=== PATIENT | female | born 1985 | race Caucasian/White ===

== ENCOUNTER 2023-01-02 09:10 | Day surgery (SDC) | payer OTHER, SELFPAY ==
[2023-01-02] MEDS: LACTATED RINGERS 1000 ML 1,000 ML 100 ML IV (09:05)
[2023-01-02 09:24] VITALS: BP 106/64; PULSE 67; RESP 16; TEMP 37.2; O2SAT 100; BMI 26.8
[2023-01-02] MEDS: SODIUM CHLORIDE 0.9 % (FLUSH) 10 ML SYRINGE IVF (09:32)
[2023-01-02] MEDS: SILVER NITRATE APPLICATOR 1 EACH STICK..EA. TOPICAL (10:49)
--- NOTE | 2023-01-02 11:10 | W.ANESCHARGE ---
Anesthesia Charges Start Date/Time Anesthesia Start Date: 01/02/23 Anesthesia Start Time: 10:15 Stop Date/Time Anesthesia Stop Date: 01/02/23 Anesthesia Stop Time: 11:09
--- NOTE | 2023-01-02 11:10 | W.ANESCHARGE ---
Anesthesia Charges Start Date/Time Anesthesia Start Date: 01/02/23 Anesthesia Start Time: 10:15 Stop Date/Time Anesthesia Stop Date: 01/02/23 Anesthesia Stop Time: 11:09
[2023-01-02 11:13] VITALS: BP 104/64; PULSE 71; RESP 16; TEMP 36.3; O2SAT 100
[2023-01-02 11:15] VITALS: BP 107/64; PULSE 65; RESP 16; O2SAT 100
--- NOTE | 2023-01-02 11:24 | W.PM.GYNPROC ---
Procedure Note Date Seen: 01/02/23 Procedure Details: Preop diagnosis: Missed Postop diagnosis: Missed Name of procedure: Suction dilation and curettage, ultrasound guided Surgeon: Domenica Lopez Environmental Compliance Inspector: None Complications: None EBL: 100mL Drains: None Finding: Anteverted uterus on bimanual examination of around 8-9 cm, no adnexal masses. Pelvic exam: Cervix closed. No gross lesions. Uterus sounded to 8 cm. Risks, benefits, alternatives, and indications of the procedure were discussed with the patient. She voiced an understanding of the procedure and signed the consent. The patient was taken to the OR were MAC anesthesia was administered without difficulty. She received 200mg of IV doxycycline before the start of procedure. She was placed in the dorsal lithotomy position with Talon type stirrups. An exam under anesthesia revealed a 8-9 week sized anteverted uterus with the cervix open. The patient was prepared and draped in the normal sterile fashion. Her bladder was emptied with in--out catheter. A bivalved speculum was inserted in the posterior aspect of the vagina. 5 mL 1% lidocaine was injected in the anterior lip of cervix, the single-tooth tenaculum was used to grasp the anterior lip of the cervix. The uterus was carefully sounded to 8 cm. Cervix was sequentially dilated with Hegar dilators up to 8mm. A 8 mm suction curette was advanced to the uterine fundus. The suction was then started. The products of conception were evacuated with the curette rotating on the outward movement. Multiple passes afterwards completed until only blood was seen to come out. Afterwards a gentle, sharp curettage was then performed with a large curette. Bedside US performed to document complete removal of products of conception, this revealed a hyperechoic area with increased blood flow in the uterine fundus, with US in place for guidance, the suction curette was reintroduced and products of conception seen to come out, afterwards only blood seen and endometrial lining looked homogenous w/o hyperechoic area as previously seen. The tenaculum was removed from the cervix and good hemostasis was noted after Silver nitrate. 800mcg of rectal Cytotec placed. The patient tolerated the procedure well. Instrument and sponge counts were correct x2. Patient was taken to the recovery room in a stable condition. The patient will go home after recovering from anesthesia and meeting all the criteria for discharge. She was given the instructions regarding follow-up visit in 2 weeks at the [facility] and instructions for pain medication management.
[2023-01-02 11:30] VITALS: BP 105/60; PULSE 65; RESP 16; O2SAT 100
[2023-01-02 11:45] VITALS: BP 110/75; PULSE 63; RESP 16; O2SAT 100
== END 2023-01-02 12:30 | disposition home or self-care (01) ==
PROVIDERS: PCP Family Medicine; Visit Provider Obstetrics & Gynecology
PROC: (CPT 59820; principal; 2023-01-02 10:30)
DX: O02.1 Missed abortion (principal)
CPT/HCPCS: 59820; 00940; 01965; A9270; J1100; J1885; J2250; J2405; J2704; J3010; J7120

== ENCOUNTER 2023-01-20 11:42 | Outpatient (CLI) | payer OTHER, SELFPAY | END 2023-01-20 11:43 | disposition home or self-care (01) | LOC: NFLDREF 11:46 | PROVIDERS: PCP Family Medicine; Visit Provider Obstetrics & Gynecology | DX: O02.1 Missed abortion (principal) | CPT/HCPCS: 84702 ==

== ENCOUNTER 2023-02-27 07:50 | Outpatient (CLI) | payer OTHER, SELFPAY | END 2023-02-27 07:51 | disposition home or self-care (01) | LOC: NFLDREF 03-01 18:06 | PROVIDERS: PCP Family Medicine; Referring Provider Family Medicine; Visit Provider Obstetrics & Gynecology | DX: O02.1 Missed abortion (principal) | CPT/HCPCS: 84702 ==

== ENCOUNTER 2023-03-13 08:25 | Outpatient (CLI) | payer OTHER, SELFPAY | END 2023-03-13 08:26 | disposition home or self-care (01) | LOC: NFLDREF 11:16 | PROVIDERS: PCP Family Medicine; Referring Provider Family Medicine; Visit Provider Obstetrics & Gynecology | DX: O02.1 Missed abortion (principal) | CPT/HCPCS: 84702 ==

== ENCOUNTER 2023-09-23 09:45 | Outpatient (RCR) | payer BC, SELFPAY | END 2023-12-17 13:41 | disposition home or self-care (01) | PROVIDERS: PCP Family Medicine; Visit Provider Dentist | DX: M26.631 Articular disc disorder of right temporomandibular joint (principal); Z51.89 Encounter for other specified aftercare | CPT/HCPCS: 97110; 97140; 97161; 97535 ==

== ENCOUNTER 2023-09-29 12:22 | Outpatient (CLI) | payer BC, SELFPAY | END 2023-09-29 12:23 | disposition home or self-care (01) | PROVIDERS: PCP Family Medicine; Visit Provider Registered Nurse | DX: Z13.29 Encounter for screening for other suspected endocrine disorder (principal); E28.39 Other primary ovarian failure | CPT/HCPCS: 82670; 83001; 84443 ==

== ENCOUNTER 2024-01-14 12:51 | Outpatient (CLI) | payer BC, SELFPAY ==
--- OUTSIDE RECORDS SUMMARY | 2024-01-14 12:54 | XMS_ITS | Data Portability ---
Author Name Unknown Address [address] [place] [address] Phone [phone] Organization [facility] [place] Address [address] [place] [address] Care Team Providers Care Regulatory Technician Name Role Phone TANISHA GARCIA Primary Care Provider [phone] [facility] Physical Therapis t [facility] Dentist [phone] Assessment Encounter Date Assessment Date Assessment LastModified by Organization Details LastModified Time 06/23/2023 06/23/2023 Today I spent a considerable amount of time discussing the patients past medical and personal history, as well as performing a physical examination all of which is documented in it's entirety in the electronic health record. I reviewed the pathophysiology of the disorder, potential contributing and risk factors as well as treatment options to address their complaints. I explained the pros and cons of advanced imaging with CBCT and MRI. I recommended advanced imaging with CBCT. Today no imaging was obtained. From a treatment perspective I recommended a rehabilitative treatment approach. Treatment begins with home self management designed to rest the muscles of mastication and reduce inflammation in the temporomandibular joints. This includes heat and ice compresses, eating a soft food or pain-free diet, bilateral chewing identifying and decreasing daytime muscle tension and modification of their sleep position. Today I taught simple jaw exercises designed to improve the jaw mechanics and movement, improve range of mouth opening and improve TM joint fluid circulation to facilitate healing. This includes jaw rotation, simple stretch and relaxed breathing. This was both demonstrated and given in written format. Beyond self management I believe that they would benefit from a mandibular intraoral appliance. In addition I've recommended rehabilitation with physical therapy. A referral was sent to [facility] and [facility]. I have also discussed the possibility of working with our health psychologist on relaxation, stress management techniques, and ways to reduce muscle tension. Kami will consider this. Briefly we discussed medication options and trigger point injections as a way to help bridge the gap into further multidisciplinary treatment. We mutually agreed to defer it today. Kami will consider this for her next follow-up. I reviewed [employer] [place] Medical Policy for diagnosis and treatment of TMD and made the patient aware that this policy requires them to see a medical doctor to rule out a list of other causes for their TMD symptoms and for the doctor to document that the cause of their TMD-like symptoms is due to TMD and no other medical condition. Their medical doctor needs to provide the patient, and us, with this documentation. They were advised to either see their medical doctor or schedule an appointment with one of the medical doctors at [facility] for consultation. They will need to trial a maximum tolerated dose of an NSAID, or similar pain medication. They will also need to have a Imaging confirms internal derangement, disc displacement, or degenerative joint disease of the temporomandibular joint (Radiographic or imaging report signed by a radiologist). No imaging was obtained today. These are the criteria required by their insurance ([facility]) to consider the treatment of their TMD to be medically necessary. Finally, they need to see their dentist to rule out a list of dental causes for their TMD symptoms and for the dentist to document if they have a dental cause for their TMD symptoms and to treat them, or to document that none exist and provide the patient with this documentation. I suggested that they contact their insurance should they have questions regarding their policy or feel the need for further clarification. Finally, I suggested that once they meet these criteria set by their insurance and they have the necessary documentation, that they send this information to me for my review. At that time, we will complete prior authorization for treatment if the documentation is complete. The goal of treatment is to improve pain, function and focus on long-term self-management strategies. I believe that by following these treatment recommendations there is a good prognosis for reduction of symptoms. History was obtained from the patient. The patient has 5+ diagnoses they would like to address. This case is moderate complexity because of multiple diagnoses with chronic symptoms. Risk of complications include progressive disease/symptoms. Today time spent may have included a review of past records, history taking, review of diagnoses, contributing factors, treatment plan, diagnostic testing, prognosis, expectations, risks and complications of treatment/no treatment, discussions with other providers and completing documentation was 60 minutes. Cost of care and insurance coverage was reviewed and discussed with the patient. Not available 06/23/2023 21:00:48 07/02/2023 07/02/2023 Patient is prese nt today for CBCT scan. Patient was not seen by the rendering physician today. Cost of care was reviewed at today's visit. [email or web address] Not available 07/02/2023 16:29:48 07/23/2023 07/23/2023 Today I reviewed the pathophysiology of this disorder, potential contributing factors and treatment options with the patient. We reviewed the findings of her CBCT. Findings include: 1. 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 2. Remodeling of the left temporomandibular joint. There were no other abnormalities noted. For complete details regarding her imaging see the radiology report in their EHR. Diagnosis and treatment options were reviewed at today's appointment. I reviewed and reinforced continued use of self care and home exercises. I encouraged daily home care use which may consist of heat and ice compresses, oral habit reduction and relaxation techniques. Medication options were discussed and deferred for the time being. I am continuing to recommend rehabilitative care with physical therapy. Kami reports that she will contact PT to start treatment. She will consider the mandibular intraoral appliance. We will wait for her to send us the documentation necessary to start prior authorization with [facility]. I suggested that (s)he return for follow-up care in 4 weeks. History today was obtained from the patient. The patient has 5+ diagnoses they would like to address. Their symptoms are improving. This case is moderate complexity because of multiple diagnoses with chronic symptoms. Data reviewed included previous imaging. Risk of complications include disease progression were discussed. Today time spent may have included a review of past records, history taking, review of diagnoses, contributing factors, treatment plan, diagnostic testing, prognosis, expectations, risks and complications of treatment/no treatment, discussions with other providers and completing documentation was 35. Not available 07/23/2023 18:24:45 08/25/2023 08/25/2023 Today I reviewed the diagnosis, contributing factors and treatment options. I reviewed and reinforced continued use of self care and home exercises. I encouraged daily home care use which may consist of heat and ice compresses, oral habit reduction and relaxation techniques. I continue to recommend rehabilitation with physical therapy. I also discussed with Kami the option of doing trigger point injections to help restore jaw function and to reduce muscle pain. We will consider it for her next visit after she has a few more sessions with PT. She would like to continue with a mandibular intraoral appliance. Today digital impressions were obtained to begin the fabrication process for oral appliance therapy. We will wait for her to send us the documentation necessary from her DDS to start prior authorization with [employer]. Our office has received a letter from her MD. History today was obtained from the patient. The patient has 5+ diagnoses which we are addressing. Their symptoms are improving. This case is moderate complexity because of multiple diagnoses with chronic symptoms. Data reviewed included outside records. Risk of complications include disease/symptom progression were discussed. Today time spent may have included a review of past records, history taking, review of diagnoses, contributing factors, treatment plan, diagnostic testing, prognosis, expectations, risks and complications of treatment/no treatment, discussions with other providers and completing documentation was 35 minutes. I suggested that (s)he return for follow-up care in 4 weeks. Not available 08/25/2023 16:11:32 10/27/2023 10/27/2023 Patient was seen today for follow-up and insertion of a mandibular stabilization intraoral appliance. Diagnosis and contributing factors were reviewed. Questions were answered. Self-management and home exercise techniques were reviewed. Today the intraoral appliance was fit to patient comfort. Specifically, adjustments were made to balance appliance occlusion. Retention was adequate. Kami reported it being comfortable to wear. Appliance was polished. Instructions on proper use and care were discussed/reviewed both written and verbally. I suggested that (s)he uses the appliance as a retraining tool to aid in relaxing their jaw muscles - put it in 20-30 minutes before bed time, keeping their jaw in a relaxed balanced position, simultaneously applying a heat compress on the jaw as a way to help with jaw relaxation. Potential side effects were reviewed. The patient was advised to discontinue oral appliance use should they experience untoward side effects or be unable to return for follow-up care. The patient was advised to return in 3-4 weeks to reassess their progress and continue their treatment plan as previously outlined. In addition to oral appliance insertion today we review home self-care strategies as previously discussed. We discussed additional treatment options. Kami has regained TMJ range of motion, but still has pain associated with right masseter trigger point. We discussed trigger point injections, and Kami would like to start first with the stabilization appliance, and consider the injection at her next follow-up if symptoms have not improved. We discussed the importance of physical therapy. Kami has completed PT. Based on her symptoms and compliance with home self-care and home jaw exercises, we mutually agreed to not continue with PT at this point. We also briefly discussed her CBCT results, the implication of right TMJ DJD and the implications for her jaw symptoms. History today was obtained from the patient. The patient has 5 diagnoses which we are addressing. Their symptoms are improving. This case is moderate complexity because of multiple diagnoses with chronic symptoms. Data reviewed included procedure documentation. Risk of complications include disease/symptom progression were discussed. Today time spent may have included a review of past records, history taking, review of diagnoses, contributing factors, treatment plan, diagnostic testing, prognosis, expectations, risks and complications of treatment/no treatment, discussions with other providers and completing documentation was 35 minutes. Not available 10/27/2023 15:02:04 12/02/2023 12/02/2023 Today I reviewed the diagnosis, contributing factors and treatment options. I reviewed and reinforced continued use of self care and home exercises. I encouraged daily home care use which may consist of heat and ice compresses, oral habit reduction and relaxation techniques. The intraoral appliance was adjusted to patient comfort. Specifically, adjustments were made to balance the occlusion since it had heavier contacts on the left side. Splint was polished. Kami reported it being comfortable to wear it. To continue to manage her symptoms, I reinforced the importance of being consistent with daily home self-care and jaw/neck exercises. We again discussed trigger point injections risks and benefits, and Kami would like to continue wearing the splint nightly for a few more weeks before considering a trial with trigger point injections. We will discuss it at her next follow-up visit. We discussed the need for additional PT, and we mutually agreed to continue with self-management treatment approaches for now. History today was obtained from the patient. The patient has 5 diagnoses which we are addressing. Their symptoms are improving. This case is moderate complexity because of multiple diagnoses with chronic symptoms. Risk of complications include disease/symptom progression were discussed. Today time spent may have included a review of past records, history taking, review of diagnoses, contributing factors, treatment plan, diagnostic testing, prognosis, expectations, risks and complications of treatment/no treatment, discussions with other providers and completing documentation was 25 minutes. I suggested that (s)he return for follow-up care in 4 weeks. Not available 12/02/2023 16:13:53 12/28/2023 12/28/2023 Today I reviewed the diagnosis, contributing factors and treatment options. I reviewed and reinforced continued use of self care and home exercises. I encouraged daily home care use which may consist of heat and ice compresses, oral habit reduction and relaxation techniques. The intraoral appliance was adjusted to patient comfort. Specifically, adjustments were made to balance the occlusion since it had slightly heavier contacts on the left posterior side. Splint was polished. Kami reported it being comfortable to wear it. I reinforced continued home self care and home exercises as outlined by physical therapy. We discussed flare-up management and expectations. I encouraged her to continue oral appliance use nightly. I suggested we start long-term follow and that she return in 12 months. History today was obtained from the patient. The patient has 5 diagnoses which we are addressing. Their symptoms are improved. This case is moderate complexity because of multiple diagnoses with chronic symptoms. Risk of complications include disease/symptom progression were discussed. Today time spent may have included a review of past records, history taking, review of diagnoses, contributing factors, treatment plan, diagnostic testing, prognosis, expectations, risks and complications of treatment/no treatment, discussions with other providers and completing documentation was 15 minutes. I suggested that (s)he return for follow-up care in annually or PRN sooner. Not available 12/28/2023 10:30:11 Plan of Treatment Reminders Order Date Submit Date Provider Last Modified By Organization Details Last Modified Time Details Appointments None recorded. Lab None recorded. Referral physical therapist referral - Please call patient to schedule an appointmen t. 2022 023 [facility] [place] [facility] [place] Pr[address]ay Kwan, [place], [address], 21:05:08 Procedures None recorded. Surgeries None recorded. Imaging CT, temporal bone, w/o contrast 2022 023 MICHAEL [facility], [address], [address], [place], [address], 14:06:41 Medication Orders None recorded. Patient TargetsNo targets recorded. Patient Instructions Encounter Date Encounter Id Patient Instructions Last Modified By Organization Details Last Modified Time 06/23/2023 [id number] Self Care for TMD Not avai lable 06/23/2023 21:02:54 oral appliance preparation* Not available 06/23/2023 21:02:54 Three Jaw Exercises Not available 06/23/2023 21:02:54 Reason for Referral Physical Therapist Referral for 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 Please call patient to schedule an appointment. Referring Physician: Beni Pike, Pain Management, Encounter Date: 06/23/2023 Results Created Date Observation Date Name Description Value Unit Range Abnormal Flag LastModifiedBy Organization Detail LastModifiedTime 06/23/2006/23/2023 oral appli ance prepa ratio n* Type of appliance mandib ular stabil izatio n applia nce Not Available [facility] [place] [address], [place], [address], 06/19/2023 14:45:00 06/23/2006/24/2023 CT, tempo ral bone, w/o contr ast No observ ation record ed. [facility] [address], [place], [address], 06/25/2023 13:06:30 07/20/20 23 07/20/2023 CT, tempo ral bone, w/o contr ast No observ ation record ed. [facility] [address], [place], [address], 07/23/2023 18:05:30 Result Notes None recorded. 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 BENI NASCSASHA Oconnell DDS,MS [address], [place], [address], [facility] 4 14:57:52 Myofascial pain Active 2022 masticatory BENI NASCSASHA Oconnell DDS,MS [address], [place], [address], [facility] 3 20:42:21 Sleep related bruxism Active 2022 BENI NASCIMENT Kourtney DDS,MS [address], [place], [address], [facility] 3 20:44:30 Bilateral temporomandibul ar joint pain Active 2022 Bilateral TMJ arthralgia?? BENI NASCIMENT Kourtney DDS,MS [address], [place], [address], [facility] 3 20:45:04 Articular disc disorder of left temporomandibul ar joint Active 2022 Remodeling of the left temporomandibul ar joint. BENI NASCIMENT Kourtney DDS,MS [address], [place], [address], [facility] 4 14:57:39 Problem Notes None recorded. Procedures Surgical History Date Name Laterality Status Provider Name and Address Organization Details Recorded Time 4 Oral appliance completed Cynthia dupont [facility] 10/26/2023 10:47:[address] TMJ completed Sherine dupont [facility] 07/02/2023 14:11:04 3 Dilation and Curettage completed Ania dupont [facility] 06/23/2023 14:13:57 Imaging Results Imaging Date Name Status LastModified by Organiz ation Details LastModified Time 06/24/2023 CT, temporal bone, w/o contrast completed Marion [address], [place], [address], 06/25/2023 13:06:30 07/20/2023 CT, temporal bone, w/o contrast completed [facility] [address], [place], [address], 07/23/2023 18:05:30 Procedure Notes None recorded. Medical Equipment None Reported. Allergies No known drug allergies Medications Name Sig Start Date Stop Date Status Note LastModified by Organization Details LastModified Time medroxyprog esterone 10 mg tablet TAKE 1 TABLET BY MOUTH ONCE A DAY 12/01 completed Not Available Not Available Not Available medroxyprog esterone 5 mg tablet TAKE TWO TABLETS (10MG) BY MOUTH ONCE DAILY active Not Available Not Available No t Available estradiol 0.1 mg/24 hr semiweekly transdermal patch APPLY 1 PATCH TO SKIN EVERY OTHER DAY active Not Available Not Available No t Available metronidazo le 0.75 % topical cream APPLY TWICE A DAY TO CHEEKS DIRECTED active Not Available Not Available No t Available progesteron e micronized 200 mg capsule INSERT 1 CAPLET TWICE DAILY active Not Available Not Available No t Available sulfacetami de sodium-sulf ur 8 %-4 % topical suspension WASH FACE ONCE DAILY. LATHER AND LET SIT FOR SEVERAL MINUTES PRIOR RINSING. active Not Available Not Available No t Available ivermectin 1 % topical cream APPLY A THIN LAYER TO THE ENTIRE FACE 1-2X DAILY, ONGOING. active Not Available Not Available No t Available Vitals Date Recorded Body height Body mass index (BMI) Body weight Heart rate Systolic blood pressure Diastolic blood pressure Provider Name and Address Organization Details Last Updated DateTime 3 162.56 cm 25.7 kg/m2 15921.8 6 g 109 /min 115 mm[Hg] 69 mm[Hg] Ania Shady dupont [facility] 3 14:10:52 Date Recorded Body height Provider Name an d Address Organization Details Last Updated DateTime 07/02/2023 162.56 cm Jory Chenp [facility] 07/02/2023 16:29:27 Date Recorded Body height Heart rate Systolic blood pressure Diastolic blood pressure Provider Name and Address Organization Details Last Updated DateTime 07/23/2023 162.56 cm 99 /min 115 mm[Hg] 70 mm[Hg] Cynthia dupont [facility] 07/23/2023 14:38:25 Date Recorded Body height Heart rate Systolic blood pressure Diastolic blood pressure Provider Name and Address Organization Details Last Updated DateTime 08/25/2023 162.56 cm 92 /min 116 mm[Hg] 72 mm[Hg] Cynthia dupont [facility] 08/25/2023 14:04:54 Date Recorded Body height Body mass index (BMI) Body weight Heart rate Systolic blood pressure Diastolic blood pressure Provider Name and Address Organization Details Last Updated DateTime 4 162.56 cm 25.7 kg/m2 10972.8 6 g 75 /min 119 mm[Hg] 79 mm[Hg] Cynthia dupont [facility] 4 14:00:16 Date Recorded Body height Heart rate Systolic blood pressure Diastolic blood pressure Provider Name and Address Organization Details Last Updated DateTime 12/02/2023 162.56 cm 71 /min 115 mm[Hg] 71 mm[Hg] Cynthia Chau [facility] 12/02/2023 15:34:44 Date Recorded Body height Heart rate Systolic blood pressure Diastolic blood pressure Provider Name and Address Organization Details Last Updated DateTime 12/28/2023 162.56 cm 73 /min 117 mm[Hg] 74 mm[Hg] Austyn Irby [facility] 12/28/2023 10:03:07 Social History Question Answer Notes LastModified by Organizat ion Details LastModified Time Tobacco Smoking Status Never Smoker RAYA Donaldson [facility] 06/23/2023 13:59:20 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 [id number] Information not available 06/23/2023 Sex: Female Functional Status None recorded. Mental Status None recorded. Family History Relationship Description Onset Age of this Age Resolved Age Notes Mother Headache Paternal Grandfather Heart disease Medical History Condition Response Other Mental Problems Y Gynecological HistoryNo gynecological history recorded. Obstetrics History GPAL:G 0 P 0 0 0 0 Immunizations Vaccine Type Date Status Provider Name and Address Organization Details Recorded Time SARS-COV-2 (COVID-19) vaccine, UNSPECIFIED 06/21/2022 completed RAYA Donaldson [facility] 06/23/2023 14:11:29 Past Encounters Encounter ID Performer Location Encounter Start Date Encounter Closed Date Diagnosis/Indication Diagnosis SNOMED-CT Code [id number] BENI PIKE DDS,[facility] [address] [place] [address] 06/23/2023 13:54:01 06/23/2023 15:17:47 Myofascial pain [id number] 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 3605999449298 9105 Sleep related bruxism 27 [id number] Bilateral temporomandibular joint pain 0028825635106 9105 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 4157215766544 [id number] BENI PIKE DDS,[facility] [address] [place] [address] 07/02/2023 14:27:20 07/02/2023 14:37:19 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 4917029252516 9104 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 [id number] 9105 Bilateral temporomandibular joint pain [id number] 9105 Myofascial pain 85970670 9 Sleep related bruxism 27 4737499 [id number] BENI PIKE DDS,[facility] [address] [place] [address] 07/23/2023 14:34:02 07/23/2023 15:18:46 Bilateral temporomandibular joint pain 5266577110554 9105 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 3748533010981 9104 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 3428221972980 9105 Sleep related bruxism 27 0906491 Myofascial pain 22658925 9 [id number] BENI PIKE DDS,[facility] [address] [place] [address] 08/25/2023 14:02:17 08/25/2023 14:43:06 Bilateral temporomandibular joint pain 4040993067332 9105 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 3399868912438 9104 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 9583717811703 9105 Myofascial pain 62676009 9 Sleep related bruxism 27 9031515 [id number] BENI PIKE DDS,[facility] [address] [place] [address] 10/27/2023 13:56:30 10/27/2023 14:31:47 Bilateral temporomandibular joint pain 1045335574193 9105 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 3388047378246 9104 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 3361105085632 9105 Sleep related bruxism 27 0222915 Myofascial pain 36413058 9 [id number] BENI PIKE DDS,[facility] [address] [place] [address] 12/02/2023 15:31:56 12/02/2023 15:58:01 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 4882381994368 9104 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 6582664356273 9105 Bilateral temporomandibular joint pain 2912694387055 9105 Sleep related bruxism 27 9050510 Myofascial pain 75548042 9 [id number] BENI PIKE DDS,[facility] [address] [place] [address] 12/28/2023 09:59:47 12/28/2023 10:28:13 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 7053175251452 9104 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 7055871430899 9105 Bilateral temporomandibular joint pain 6991850178050 9105 Sleep related bruxism 27 9596037 Myofascial pain 30486489 9 Health Concerns Section Related Observation LastModified by Organization Detai ls LastModified Time None Recorded Concern Status LastModified by Organization Details LastModified Time None Recorded Advance Directives Directive None Recorded Payers Encounter Date Sequence Insurance Name Policy Number Policy Handy Covered Member ID Handy Member ID Guarantor Name 12/28/2023 1 [facility] [id number] Kami M Mariela [id number] Kami M Mariela 12/02/2023 1 [place] [id number] Kaim M Mariela [id number] Kami M Mariela 10/27/2023 [place] [id number] Kami M Mariela [id number] Kami M Mariela 08/25/2023 [place] [id number] Kami M Mariela [id number] Kami M Mariela 07/23/2023 1 [place] [id number] Kami M Mariela [id number] Kami M Mariela 07/02/2023 1 [place] [id number] Kami M Mariela [id number] Kami M Mariela 06/23/2023 1 [place] [id number] Kami M Mariela [id number] Kami M Mariela Notes Date Note Type Note Provider Name and Address Organization Details Recorded Time 06/23/2023 text/html HPI Notes: gener al HPI for jaw, face, TMD pain Reported by patient. Onset: started 20 year(s) ago; gradual; 2018 and 2019 Location: bilateral; masseteric Quality: dull; aching; sore Severity: mild Duration intermittent daily Symptom triggers: clenching; bruxism; stress; anxiety; chews hard/crunchy/chewy foods Aggravating Factors: stress; anxiety; grinding teeth; clenching the teeth; yawning; wide mouth opening Alleviating Factors: NSAIDs; splint therapy; physical therapy Associated Symptoms: jaw locks closed right Prior Treatment: retirement consultant/oral appliance/splint Symptoms status Patient presents today for evaluation of a possible temporomandibular disorder. These symptoms are chronic and began with no clear triggering events. Previous consultation include evaluation with his/her dentist. Symptoms are bilateral and aggravated by clenching and grinding of their teeth. The patient is aware of teeth clenching and grinding. 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 During her 30s she started noticing bilateral jaw pain. The symptoms have been stable since and It increased during the pandemic. She associates it with stress and anxiety. She used a NTI during that time for about a year and developed an anterior open bite (stable since). Last year she was seen at [facility] for evaluation. She reported about 30-40% pain improvement with physical therapy and home self-care. She is currently not engaged with self-care, but will occasionally do the TMJ rotation exercise with TMJ stretches. She also wore a maxillary stabilization appliance, which was very helpful but has a posterior crack so she does not wear it. She has frequently higher jaw pain upon awakening. Her current symptoms are bilateral jaw pain (right greater than left). She reported one right TMJ closed lock episode that lasted for about 3 days last year. She stopped noticing right TMJ click since, but recognizes occasional crepitus. She denies any widespread joint pain and hypermobile she is not. She denies headache, neck pain or ear pain. She denies dental pain, snoring and witnessed apnea. She is overall in good health, and is seeing a therapist on a as needed basis to address infertility issues and the impact in her mental health. 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 BENI PIKE DDS,MS [address], [place], [address], [facility] 06/23/2023 21:02:57 07/02/2023 text/html HPI Notes: Taiwo randolph present in clinic for CT scan of bilateral TMJ. Took bilateral CT scan and sent scan to [facility] to be read. BENI PIKE DDS,MS [address], [place], [address], [facility] 07/19/2023 20:21:37 07/23/2023 text/html HPI Notes: gener al HPI for jaw, face, TMD pain Reported by patient. Onset: started 20 year(s) ago; gradual; 2018 Location: bilateral; masseteric Quality: dull; aching; sore Severity: mild Duration intermittent daily Symptom triggers: clenching; bruxism; stress; anxiety; chews hard/crunchy/chewy foods Aggravating Factors: stress; anxiety; grinding teeth; clenching the teeth; yawning; wide mouth opening Alleviating Factors: NSAIDs; splint therapy; physical therapy Associated Symptoms: jaw locks closed right Prior Treatment: retirement consultant/oral appliance/splint Symptoms status improved Patient presents today for follow-up. They report jaw symptoms which are improved since the previous visit. Symptoms and pertinent information along with prior data was reviewed, updated and documented in the patient history of present illness. Patient rates the pain intensity as 4 on a scale of 0 to 10. Patient is partially engaged in active treatment at this time. Kami is doing heat compresses in both masseters at night, and report 5% of improvement to her overall symptoms. She has not started with the home jaw exercises. Kami has been in contact with PT but has not scheduled an initial visit She has seen MD and [facility] following [facility] insurance recommendations. BENI PIKE DDS,MS [address], [place], [address], [facility] 07/23/2023 18:29:25 08/25/2023 text/html HPI Notes: gener al HPI for jaw, face, TMD pain Reported by patient. Onset: started 20 year(s) ago; gradual; 2018 Location: bilateral; masseteric Quality: dull; aching; sore Severity: mild Duration intermittent daily Symptom triggers: clenching; bruxism; stress; anxiety; chews hard/crunchy/chewy foods Aggravating Factors: stress; anxiety; grinding teeth; clenching the teeth; yawning; wide mouth opening Alleviating Factors: NSAIDs; splint therapy; physical therapy Associated Symptoms: jaw locks closed right Prior Treatment: retirement consultant/oral appliance/splint Symptoms status improved Patient presents today for follow-up. They report jaw symptoms which are improved since the previous visit. Symptoms and pertinent information along with prior data was reviewed, updated and documented in the patient history of present illness. Patient rates the pain intensity as 2 on a scale of 0 to 10. Patient is engaged in active treatment at this time. Kami is present for a follow up appointment today. She states tends to have some discomfort on right side when chewing foods that can be chewy. She started physical therapy. She finds it very helpful, she has had two visits , and is doing the PT exercises 1-3 times a day. She reports close to 50% of improvement, mainly due to PT and home PT. She is doing heat compresses daily (jaw/neck), KYLE PIKE DDS,MS [address], [place], [address], [facility] 08/25/2023 16:23:34 10/27/2023 text/html HPI Notes: gener al HPI for jaw, face, TMD pain Reported by patient. Onset: started 20 year(s) ago; gradual; 2018 and 2019 Location: bilateral; masseteric Quality: dull; aching; sore Severity: mild Duration intermittent daily Symptom triggers: clenching; bruxism; stress; anxiety; chews hard/crunchy/chewy foods Aggravating Factors: stress; anxiety; grinding teeth; clenching the teeth; yawning; wide mouth opening Alleviating Factors: NSAIDs; splint therapy; physical therapy Associated Symptoms: jaw locks closed right Prior Treatment: retirement consultant/oral appliance/splint Symptoms status improved Patient presents today for insertion of a mandibular stabilization oral appliance. They note improved symptoms which along with prior data was reviewed, updated and documented in the patient history of present illness. (S)he describes compliance with home self care as previously recommended. Kami continue to report improvement. She reports no pain with and talking. She has pain at end range of motion and pain around knot on right masseter. She is doing daily heat compresses nad jaw distraction exercises. Ca has completed PT. She feels that she has increased range of motion BENI PIKE DDS,MS [address], [place], [address], [facility] 10/27/2023 15:03:03 12/02/2023 text/html HPI Notes: gener al HPI for jaw, face, TMD pain Reported by patient. Onset: started 20 year(s) ago; gradual; 2018 Location: bilateral; masseteric Quality: dull; aching; sore Severity: mild Duration intermittent daily Symptom triggers: clenching; bruxism; stress; anxiety; chews hard/crunchy/chewy foods Aggravating Factors: stress; anxiety; grinding teeth; clenching the teeth; yawning; wide mouth opening Alleviating Factors: NSAIDs; splint therapy; physical therapy Associated Symptoms: jaw locks closed right Prior Treatment: retirement consultant/oral appliance/splint Symptoms status improved Patient presents today for follow-up. They report jaw symptoms which are improved since the previous visit. Symptoms and pertinent information along with prior data was reviewed, updated and documented in the patient history of present illness. Patient rates the pain intensity as 3 on a scale of 0 to 10. Patient is completed active treatment at this time. Kami reports slightly improvement. Kami is present for 1 month follow up with splint. She has completed PT. She reports that her both masseter muscles feels tight. Kami is still doing heat compresses as needed and home PT exercises daily. She is using the mandibular splint nightly, and has noticed increased pressure on the splint on the left side. BENI PIKE DDS,MS [address], [place], [address], [facility] 12/02/2023 16:14:48 12/28/2023 text/html HPI Notes: gener al HPI for jaw, face, TMD pain Reported by patient. Onset: started 20 year(s) ago; gradual; 2018 Location: bilateral; masseteric Quality: dull; aching; sore Severity: mild; pain level 1/10 Duration intermittent daily Symptom triggers: clenching; bruxism; stress; anxiety; chews hard/crunchy/chewy foods Aggravating Factors: stress; anxiety; grinding teeth; clenching the teeth; yawning; wide mouth opening Alleviating Factors: NSAIDs; splint therapy; physical therapy Associated Symptoms: jaw locks closed right Prior Treatment: retirement consultant/oral appliance/splint Symptoms status improved Patient presents today for follow-up. They report jaw symptoms which are improved since the previous visit. Symptoms and pertinent information along with prior data was reviewed, updated and documented in the patient history of present illness. Patient rates the pain intensity as 1 on a scale of 0 to 10. Patient is engaged in active treatment at this time. Kami is present for 2 month follow up with splint. She states that she is doing well with her splint, less pain and more aware of daily clenching. No need for TPI today. Kami did finish with PT in [place]. She is doing home exercises as needed. She wearing her mandibular splint nightly without issues. Pain is now occurring upon awakening and splint is very helpful. BENI PIKE DDS,MS [address], [place], [address], [facility] 12/28/2023 10:30:51 OBGyn Episode No OBEpisode recorded.
--- OUTSIDE RECORDS SUMMARY | 2024-01-14 12:54 | XMS_ITS | Continuity of Care Document ---
Author Name Unknown Address [address] [place] [address] Phone [phone] Organization 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 I suggested that [...] was 35 minutes. Not available 10/27/2023 15:02:04 Plan of Treatment Reminders Order Date Submit Date Provider Last Modified By Organization Details Last Modified Time Details Appointments None record ed. Lab None record ed. Referral None record ed. Procedures None record ed. Surgeries None record ed. Imaging None record ed. Medication Orders None record ed. Patient TargetsNo targets recorded. Patient InstructionsNo instructions recorded. 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 BENI Oconnell, DDS,MS [address], [place], [address], [facility] 4 14:57:52 Myofascial pain Active 2022 masticatory BENIHERMINIA Oconnell DDS,MS [address], [place], [address], [facility] 3 20:42:21 Sleep related bruxism Active 2022 BENI NASCIMENT Kourtney, DDS,MS [address], [place], [address], [facility] 3 20:44:30 Bilateral temporomandibul ar joint pain Active 2022 Bilateral TMJ arthralgia?? BENI CALDERONIMENT Kourtney, DDS,MS [address], [place], [address], [facility] 3 20:45:04 Articular disc disorder of left temporomandibul ar joint Active 2022 Remodeling of the left temporomandibul ar joint. BENI YUMIKOSASHA Oconnell DDS,MS [address], [place], [address], [facility] 4 14:57:39 Problem Notes None recorded. Procedures Surgical History Date Name Laterality Status Provider Name and Address Organization Details Recorded Time 4 Oral appliance completed Cynthia dupont [facility] 10/26/2023 10:47:[address] TMJ completed Sherine dupont [facility] 07/02/2023 14:11:04 3 Dilation and Curettage completed Ania Caruso [facility] 06/23/2023 14:13:57 Imaging Results None recorded. Procedure Notes None recorded. Medical Equipment None [...] Updated DateTime 4 162.56 cm 25.7 kg/m2 42434.8 6 g 75 /min 119 mm[Hg] 79 mm[Hg] Cynthia dupont 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 [id number] Information not available 06/23/2023 Sex: Female Functional [...] (COVID-19) vaccine, UNSPECIFIED 06/21/2022 completed RAYA Donaldson [facility] 06/23/2023 14:11:29 Past Encounters Encounter ID Performer Location Encounter Start Date Encounter Closed Date Diagnosis/Indication Diagnosis SNOMED-CT Code [id number] BENI PIKE DDS,MS [place] [address] [place] [address] 10/27/2023 13:56:30 10/27/2023 14:31:47 Bilateral temporomandibular joint pain [id number] 05 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 949117825975378 04 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.] Symptoms: jaw locks closed right 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
--- OUTSIDE RECORDS SUMMARY | 2024-01-14 12:54 | XMS_ITS | Continuity of Care Document ---
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 Not available 12/02/2023 16:13:53 Plan of Treatment Reminders Order Date Submit [...] to schedule an appointment. 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 BENI Oconnell DDS,MS [address], [place], [address], [facility] 4 14:57:52 Myofascial pain Active 2022 masticatory BENI Oconnell DDS,MS [address], [place], [address], [facility] 3 20:42:21 Sleep related bruxism Active 2022 BENI Oconnell DDS,MS [address], [place], [address], [facility] 3 20:44:30 Bilateral temporomandibul ar joint pain Active 2022 Bilateral TMJ arthralgia?? 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 BENI Oconnell, DDS,MS [address] [facility], [place], [address], [facility] 4 14:57:39 Problem Notes None recorded. Procedures Surgical History Date Name Laterality Status Provider Name and Address Organization Details Recorded Time 4 Oral appliance completed Cynthia dupont [facility] 10/26/2023 10:47:[address] TMJ completed Sherine dupont [facility] 07/02/2023 14:11:04 3 [facility] [...] t Available Vitals Date Recorded Body height Heart rate Systolic blood pressure Diastolic blood pressure Provider Name and Address Organization Details Last Updated DateTime 12/02/2023 162.56 cm 71 /min 115 mm[Hg] 71 mm[Hg] Cynthiamaximo RiceRAYA kay - [facility] 12/02/2023 15:34:44 Social History Question Answer Notes LastModified by Organizat ion Details LastModified Time Tobacco Smoking Status Never Smoker RAYA Donaldson [facility] 06/23/2023 13:59:20 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 280442090287226 05 Bilateral temporomandibular joint pain 557746947557348 05 Sleep related bruxism 27 9533007 Myofascial pain 39633825 9 Health Concerns Section Related Observation LastModified by Organization Detai ls LastModified Time None Recorded Concern Status LastModified by Organization Details LastModified Time None Recorded Payers Encounter Date Sequence Insurance Name Policy Number Policy Handy Covered Member ID Handy Member ID Guarantor Name 12/02/2023 1 [facility] [id number] Kami Sierra [id number] Kami Sierra Notes Date Note Type Note Provider Name and Address Organization Details Recorded Time 12/02/2023 text/html HPI Notes: gener al HPI [...] Symptoms: jaw locks closed right Prior Treatment: plant guard/oral appliance/splint Symptoms status improved Patient presents [...] on the left side. BENI PIKE DDS,MS [address], [place], [address], [facility] 12/02/2023 16:14:48 OBGyn Episode No OBEpisode recorded.
--- OUTSIDE RECORDS SUMMARY | 2024-01-14 12:54 | XMS_ITS | Continuity of Care Document ---
Author Name Unknown Address [address] [place] [address] Phone [phone] Organization [facility] [place] Address [address] [place] [address] Care Team Providers Care Foreign Language Instructor Name Role Phone TANISHA GARCIA Primary Care Provider [facility] Physical Therapis t [facility] Dentist Assessment Encounter Date Assessment Date Assessment LastModified by Organization Details LastModified Time 12/28/2023 12/28/2023 Today I reviewed the diagnosis, [...] temporomandibul ar joint. BENI Oconnell DDS,MS [address], [place], [address], [facility] 4 14:57:52 Myofascial pain Active 2022 masticatory BENI Oconnell DDS,MS [address], [place], [address], [facility] 3 20:42:21 Sleep related bruxism Active 2022 BENI Oconnell DDS,MS [address], [place], [address], [facility] 3 20:44:30 Bilateral temporomandibul ar joint pain Active 2022 Bilateral TMJ arthralgia?? 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 BENI Oconnell DDS,MS [address] [facility] [address], [place], [address], [facility] 4 14:57:39 Problem Notes None recorded. Procedures Surgical History Date Name Laterality Status Provider Name and Address Organization Details Recorded Time 4 Oral appliance completed Cynthia dupont [facility] 10/26/2023 10:47:[address] TMJ completed Sherine dupont [facility] 07/02/2023 14:11:04 3 Dilation and Curettage completed Ania dupont [facility] 06/23/2023 [...] cm 73 /min 117 mm[Hg] 74 mm[Hg] RAYA Thomas - [facility] 12/28/2023 10:03:07 Social History Question Answer Notes LastModified by Organizat ion Details LastModified Time Tobacco Smoking Status Never Smoker RAYA Donaldson - [facility] 06/23/2023 13:59:20 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 057173853960413 05 Bilateral temporomandibular joint pain 069373917973886 05 Sleep related bruxism 27 5088092 Myofascial pain 60389331 9 [id number] BENI PIKE DDS,MS [place] [address] [place] [address] 12/28/2023 09:59:47 12/28/2023 10:28:13 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 127765646843943 04 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 458339481742785 05 Bilateral temporomandibular joint pain 387697755888071 05 Sleep related bruxism 27 9536542 Myofascial pain 73501548 9 Health Concerns Section Related Observation LastModified by Organization Detai ls LastModified Time None Recorded Concern Status LastModified by Organization Details LastModified Time None Recorded Payers Encounter Date Sequence Insurance Name Policy Number Policy Handy Covered Member ID Handy Member ID Guarantor Name 12/28/2023 1 [facility] [id number] Kami Sierra [id number] Kami Sierra Notes Date Note Type Note Provider Name and Address Organization Details Recorded Time 12/28/2023 text/html HPI Notes: gener al HPI [...] Symptoms: jaw locks closed right Prior Treatment: bulb inspector/oral appliance/splint Symptoms status improved Patient presents today [...] today. Kami did finish with PT in [place]. She is doing home exercises as needed. She wearing her mandibular splint nightly without issues. Pain is now occurring upon awakening and splint is very helpful. BENI PIKE DDS,MS [address] [address], [place], [address], [facility] 12/28/2023 10:30:51 OBGyn Episode No OBEpisode recorded.
--- NOTE | 2024-01-14 13:00 | US_ITS ---
Patient: JAYNE HAHN Facility:?[facility] Patient ID:?[id number] Site Patient ID:?[id number]. Site :?1985 Study:?US-Pelvis TRANSABDOMINAL AND TRANSVAGINAL-01/14/2024 1:35:45 PM Ordering Physician:?JOSHUA PAL Final Report: INDICATION: Pelvic and perineal pain TECHNIQUE: Transabdominal and transvaginal scanning was performed. Transvaginal scanning was performed to optimally evaluate the endometrium and adnexa. Ovarian blood flow was evaluated with color-flow and pulsed Doppler. COMPARISON: None. FINDINGS: The uterus is normal in size and shape. The uterus measures 9.1 x 4.0 x 5.5 cm. No myometrial mass is evident. The endometrial stripe is normal in thickness at 9 mm. The ovaries are normal in size and contain a number of follicles. The right ovary measures 2.5 x 1.7 x 0.9 cm and left 3.1 x 1.7 x 0.9 cm. Ovarian blood flow is demonstrated with color-flow and pulsed Doppler. No adnexal mass is evident. No free fluid is demonstrated. IMPRESSION: Negative pelvic ultrasound. Dictated by Rhett Urban MD @ 01/15/2024 12:21:10 PM Signed by:?Rhett Urban MD @01/15/2024 12:21:10 PM (Electronic Signature)
== END 2024-01-14 12:52 | disposition home or self-care (01) ==
LOC: US 12:52
PROVIDERS: PCP Family Medicine; Visit Provider Registered Nurse
DX: R10.2 Pelvic and perineal pain (principal)
CPT/HCPCS: 76830; 76856; 93976

== ENCOUNTER 2024-01-22 10:53 | Outpatient (CLI) | payer BC, SELFPAY | END 2024-01-22 10:54 | disposition home or self-care (01) | PROVIDERS: PCP Family Medicine; Visit Provider Family Medicine | DX: R10.32 Left lower quadrant pain (principal); G89.29 Other chronic pain | CPT/HCPCS: 80048; 80076; 83690; 86140 ==

== ENCOUNTER 2024-02-08 07:51 | Outpatient (CLI) | payer BC, SELFPAY ==
--- OUTSIDE RECORDS SUMMARY | 2024-02-08 07:54 | XMS_ITS | Continuity of Care Document ---
Author Name Unknown Address [address] [place] [address] Phone [phone] Organization [facility] [place] Address [address] [place] [address] Care Team Providers Care Staff Editor Name Role Phone TANISHA GARCIA Primary Care Provider [facility] Physical Therapis t [facility] Dentist Assessment Encounter Date Assessment [...] temporomandibul ar joint. BENI Oconnell DDS,MS [address], [place], [address], [facility] 4 14:57:52 Myofascial pain Active 2022 masticatory BENI Oconnell DDS,MS [address], [place], [address], [facility] 3 20:42:21 Sleep related bruxism Active 2022 BENI Oconnell DDS,MS [address], [place], [address], [facility] 3 20:44:30 Bilateral temporomandibul ar joint pain Active 2022 Bilateral TMJ arthralgia?? 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 BENI Oconnell DDS,MS [address] [facility] [address], [place], [address], [facility] 4 14:57:39 Problem Notes None recorded. Procedures Surgical History Date Name Laterality Status Provider Name and Address Organization Details Recorded Time 4 Oral appliance completed Cynthia dupont [facility] 10/26/2023 10:47:[address] TMJ completed Sherine dupont [facility] 07/02/2023 14:11:04 3 Dilation and Curettage completed Ania dupont [facility] [...] /min 117 mm[Hg] 74 mm[Hg] Austyn Irby [facility] 12/28/2023 10:03:07 Social History Question Answer Notes LastModified by Organizat ion Details LastModified Time Tobacco Smoking Status Never Smoker RAYA Donaldson [facility] 06/23/2023 13:59:20 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 [id number] Information not available 06/23/2023 Sex: Female Functional [...] vaccine, UNSPECIFIED 06/21/2022 completed RAYA Donaldson - [place] [facility] 06/23/2023 14:11:29 Past Encounters Encounter ID Performer Location Encounter Start Date Encounter Closed Date Diagnosis/Indication Diagnosis SNOMED-CT Code [id number] BENI PIKE DDS,MS [place] [address] [place] [address] 12/02/2023 15:31:56 12/02/2023 15:58:01 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 522239207972728 04 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 214270877724522 05 Bilateral temporomandibular joint pain 450183600794843 05 Sleep related bruxism 27 7240711 Myofascial pain 60937021 9 [id number] BENI PIKE DDS,MS [place]ha [address] [place] [address] 12/28/2023 09:59:47 12/28/2023 10:28:13 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 674579327704085 04 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 467811372755050 05 Bilateral temporomandibular joint pain 848504677892143 05 Sleep related bruxism 27 4399557 Myofascial pain 60546188 9 Health Concerns Section Related Observation LastModified by Organization Detai ls LastModified Time None Recorded Concern Status LastModified by Organization Details LastModified Time None Recorded Payers Encounter Date Sequence Insurance Name Policy Number Policy Handy Covered Member ID Handy Member ID Guarantor Name 12/28/2023 1 [facility] [id number] Kami Sierra [id number] Kami Sierra Notes Date Note Type [...] Kami did finish with PT in [place]. She is doing home exercises as needed. She wearing her mandibular splint nightly without issues. Pain is now occurring upon awakening and splint is very helpful. BENI PIKE DDS,MS [address], [place], [address], [facility] 12/28/2023 10:30:51 OBGyn Episode No OBEpisode recorded.
--- OUTSIDE RECORDS SUMMARY | 2024-02-08 07:54 | XMS_ITS | Continuity of Care Document ---
Author Name Unknown Address [address] [place] [address] Phone [phone] Organization [facility] [place] Address [address] [place] [address] Care Team Providers Care Stone Banker Name Role Phone TANISHA GARCIA Primary Care Provider [facility] Physical Therapis t [facility] Dentist Assessment Encounter Date Assessment [...] temporomandibul ar joint. BENI Oconnell DDS,MS [address], [place], [address], [facility] 4 14:57:52 Myofascial pain Active 2022 masticatory BENI Oconnell DDS,MS [address], [place], [address], [facility] 3 20:42:21 Sleep related bruxism Active 2022 BENI Oconnell DDS,MS [address], [place], [address], [facility] 3 20:44:30 Bilateral temporomandibul ar joint pain Active 2022 Bilateral TMJ arthralgia?? 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 BENI Oconnell, DDS,MS [address] [facility] [address], [place], [address], [facility] 4 14:57:39 Problem Notes None recorded. Procedures Surgical History Date Name Laterality Status Provider Name and Address Organization Details Recorded Time 4 Oral appliance completed Cynthia dupont [facility] 10/26/2023 10:47:[address] TMJ completed Sherine dupont [facility] 07/02/2023 14:11:04 3 [facility] 06/23/2023 14:13:57 [...] 71 /min 115 mm[Hg] 71 mm[Hg] Cynthia Ricekelsea DOS SANTOS [facility] 12/02/2023 15:34:44 Social History Question Answer Notes LastModified by Organizat ion Details LastModified Time Tobacco Smoking Status Never Smoker RAYA Donaldson [facility] 06/23/2023 13:59:20 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 [id number] Information not available 06/23/2023 Sex: Female Functional [...] (COVID-19) vaccine, UNSPECIFIED 06/21/2022 completed RAYA Donaldson [facility] 06/23/2023 14:11:29 Past Encounters Encounter ID Performer Location Encounter Start Date Encounter Closed Date Diagnosis/Indication Diagnosis SNOMED-CT Code [id number] BENI PIKE DDS,MS [place] [address] [place] [address] 12/02/2023 15:31:56 12/02/2023 15:58:01 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 199384818041010 04 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 093279380718503 05 Bilateral temporomandibular joint pain 653851584669386 05 Sleep related bruxism 27 0942121 Myofascial pain 81609263 9 Health Concerns Section Related Observation LastModified by Organization Detai ls LastModified Time None Recorded Concern Status LastModified by Organization Details LastModified Time None Recorded Payers Encounter Date Sequence Insurance Name Policy Number Policy Handy Covered Member ID Handy Member ID Guarantor Name 12/02/2023 1 [facility] [id number] Kami Sierra [id number] Kami Sierra Notes Date Note Type [...] Symptoms: jaw locks closed right 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 BENI PIKE DDS,MS [address], [place], [address], [facility] 12/02/2023 16:14:48 OBGyn Episode No OBEpisode recorded.
--- OUTSIDE RECORDS SUMMARY | 2024-02-08 07:54 | XMS_ITS | Data Portability ---
Author Name Unknown Address [address] [place] [address] Phone [phone] Organization [facility] Address [address] [place] [address] Care Team Providers Care Research And Development Tester Name Role Phone TANISHA GARCIA Primary Care Provider [facility] Physical Therapis t [facility] Dentist Assessment Encounter [...] physical therapy. A referral was sent to [facility] and [facility]. I have also discussed the possibility of [...] her next follow-up. I reviewed [facility] [place] Medical Policy for diagnosis and treatment [...] with one of the medical doctors at [facility] for consultation. They will need to trial a maximum tolerated dose of an NSAID, or similar pain medication. They will also need to have a Imaging confirms internal derangement, disc displacement, or degenerative joint disease of the temporomandibular joint (Radiographic or imaging report signed by a radiologist). No imaging was obtained today. These are the criteria required by their insurance ([facility]) to consider the treatment of their [...] documentation necessary to start prior authorization with [facility]. I suggested that (s)he return for [...] to schedule an appointmen t. 2022 023 [facility], [facility] Pr[address]ay Kwan, [place], [address], 21:05:08 Procedures None recorded. Surgeries None recorded. Imaging CT, temporal bone, w/o contrast 2022 023 MICHAEL [facility], [address], [address], [place], [address], 14:06:41 Medication Orders None recorded. Patient TargetsNo targets recorded. Patient Instructions Encounter Date Encounter Id Patient Instructions Last Modified By Organization Details Last Modified Time 06/23/2023 [id number] Self Care for TMD Not avai lable [...] stabil izatio n applia nce Not Available [place] [address], [place], [address], 06/19/2023 14:45:00 06/23/2006/24/2023 CT, tempo ral bone, w/o contr ast No observ ation record ed. [facility] [address], [place], [address], 06/25/2023 13:06:30 07/20/20 23 07/20/2023 CT, tempo ral bone, w/o contr ast No observ ation record ed. [facility] [address], [place], [address], 07/23/2023 18:05:30 Result Notes None recorded. 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 BENI NASCSASHA Oconnell DDS,MS [address], [place], [address], [facility] 4 14:57:52 Myofascial pain Active 2022 masticatory BENI NASCSASHA Oconnell DDS,MS [address], [place], [address], [facility] 3 20:42:21 Sleep related bruxism Active 2022 BENI NASCIMENT Kourtney DDS,MS [address] [facility] [address], [place], [address], [facility] 3 20:44:30 Bilateral temporomandibul ar joint pain Active 2022 Bilateral TMJ arthralgia?? 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 BENI NASCIMENT Kourtney DDS,MS [address] [facility] [address], [place], [address], [facility] 4 14:57:39 Problem Notes None recorded. Procedures Surgical History Date Name Laterality Status Provider Name and Address Organization Details Recorded Time 4 Oral appliance completed Cynthia dupont [facility] 10/26/2023 10:47:[address] TMJ completed Sherine dupont [facility] 07/02/2023 14:11:04 3 Dilation and Curettage completed Ania dupont [facility] 06/23/2023 14:13:57 Imaging Results Imaging Date Name Status LastModified by Organiz ation Details LastModified Time 06/24/2023 CT, temporal bone, w/o contrast completed [facility] [address], [place], [address], 06/25/2023 13:06:30 07/20/2023 CT, temporal bone, w/o contrast completed [facility] [address], [place], [address], 07/23/2023 18:05:30 Procedure Notes None recorded. Medical [...] Updated DateTime 3 162.56 cm 25.7 kg/m2 09929.8 6 g 109 /min 115 mm[Hg] 69 mm[Hg] Ania Caruso [facility] 14:10:52 Date Recorded Body height Provider Name an d Address Organization Details Last Updated DateTime 07/02/2023 162.56 cm Jory Franchesca [facility] 07/02/2023 16:29:27 Date Recorded Body height Heart rate Systolic blood pressure Diastolic blood pressure Provider Name and Address Organization Details Last Updated DateTime 07/23/2023 162.56 cm 99 /min 115 mm[Hg] 70 mm[Hg] Cynthia Chau [facility] 07/23/2023 14:38:25 Date Recorded Body height Heart rate Systolic blood pressure Diastolic blood pressure Provider Name and Address Organization Details Last Updated DateTime 08/25/2023 162.56 cm 92 /min 116 mm[Hg] 72 mm[Hg] Cynthia Chau [facility] 08/25/2023 14:04:54 Date Recorded Body height Body mass index (BMI) Body weight Heart rate Systolic blood pressure Diastolic blood pressure Provider Name and Address Organization Details Last Updated DateTime 162.56 cm 25.7 kg/m2 74967.8 6 g 75 /min 119 mm[Hg] 79 mm[Hg] Cynthia Chau [facility] 4 14:00:16 Date Recorded Body height Heart rate Systolic blood pressure Diastolic blood pressure Provider Name and Address Organization Details Last Updated DateTime 12/02/2023 162.56 cm 71 /min 115 mm[Hg] 71 mm[Hg] Cynthia Chau [facility] 12/02/2023 15:34:44 Date Recorded Body height Heart rate Systolic blood pressure Diastolic blood pressure Provider Name and Address Organization Details Last Updated DateTime 12/28/2023 162.56 cm 73 /min 117 mm[Hg] 74 mm[Hg] Austyn Irby [facility] 12/28/2023 10:03:07 Social History Question Answer Notes LastModified by Organizat ion Details LastModified Time Tobacco Smoking Status Never Smoker Ania dupont [facility] 06/23/2023 13:59:20 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 [id number] Information not available 06/23/2023 Sex: Female Functional [...] (COVID-19) vaccine, UNSPECIFIED 06/21/2022 completed RAYA Donaldson [facility] 06/23/2023 14:11:29 Past Encounters Encounter ID Performer Location Encounter Start Date Encounter Closed Date Diagnosis/Indication Diagnosis SNOMED-CT Code [id number] BENI PIKE DDS,MS [facility] [address] [place] [address] 06/23/2023 13:54:01 06/23/2023 15:17:47 Myofascial pain [id number] 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 5060816372473 9105 Sleep related bruxism 27 4986211 Bilateral temporomandibular joint pain 4408770252401 9105 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 6822432114974 9104 [id number] BENI PIKE DDS,MS [place] [address] [place] [address] 07/02/2023 14:27:20 07/02/2023 14:37:19 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 9213259803698 9104 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 1496535325853 9105 Bilateral temporomandibular joint pain 3522779777200 9105 Myofascial pain 01996355 9 Sleep related bruxism 27 0082034 [id number] BENI PIKE DDS,MS [place] [address] [place] [address] 07/23/2023 14:34:02 07/23/2023 15:18:46 Bilateral temporomandibular joint pain 5178420892448 9105 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 3409801360337 9104 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 8947923887481 9105 Sleep related bruxism 27 9855298 Myofascial pain 36790661 9 [id number] BENI PIKE DDS,[place] [address] [place] [address] 08/25/2023 14:02:17 08/25/2023 14:43:06 Bilateral temporomandibular joint pain 3353061203148 9105 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 7366898608164 9104 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 7456721779355 9105 Myofascial pain 88190229 9 Sleep related bruxism 27 9067124 [id number] BENI PIKE DDS,[place] [address] [place] [address] 10/27/2023 13:56:30 10/27/2023 14:31:47 Bilateral temporomandibular joint pain 2933259721501 9105 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 3903891480561 9104 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 3957610468015 9105 Sleep related bruxism 27 8326974 Myofascial pain 83552914 9 [id number] BENI PIKE DDS,MS [place] [address] [place] [address] 12/02/2023 15:31:56 12/02/2023 15:58:01 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 9375761389740 9104 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 3882443697634 9105 Bilateral temporomandibular joint pain 0379036003270 9105 Sleep related bruxism 27 2302089 Myofascial pain 94095307 9 [id number] BENI PIKE DDS,MS [place] [address] [facility] [place] [address] 12/28/2023 09:59:47 12/28/2023 10:28:13 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 3624210723009 9104 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 2159646042097 9105 Bilateral temporomandibular joint pain 4768970256369 9105 Sleep related bruxism 27 5937783 Myofascial pain 06948201 9 Health Concerns Section Related Observation LastModified by Organization Detai ls LastModified Time None Recorded Concern Status LastModified by Organization Details LastModified Time None Recorded Advance Directives Directive None Recorded Payers Encounter Date Sequence Insurance Name Policy Number Policy Handy Covered Member ID Handy Member ID Guarantor Name 12/28/2023 1 [facility] [id number] Kami M Mariela [id number] Kami M Mariela 12/02/2023 1 [place] [id number] Kami M Mariela [id number] Kami M Mariela 10/27/2023 1 [place] [id number] Kami M Mariela [id number] Kami M Mariela 08/25/2023 1 [place] [id number] Kami M Mariela [id number] Kami M Mariela 07/23/2023 1 [place] [id number] Kami M Mariela [id number] Kami M Mariela 07/02/2023 1 [place] [id number] Kami M Mariela [id number] Kami M Mariela 06/23/2023 1 [place] [id number] Kami M Mariela [id number] Kami M Mariela Notes Date Note [...] Symptoms: jaw locks closed right Prior Treatment: guard rail installer/oral appliance/splint Symptoms status Patient presents today for [...] since). Last year she was seen at [facility] for evaluation. She reported about 30-40% pain [...] in her mental health. 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 BENI PIKE DDS,MS [address], [place], [address], [facility] 06/23/2023 21:02:57 07/02/2023 text/html HPI Notes: Taiwo randolph present in clinic for CT scan of bilateral TMJ. Took bilateral CT scan and sent scan to [facility] to be read. BENI PIKE DDS,MS [address] [facility] [address], [place], [address], [facility] 07/19/2023 20:21:37 [...] Symptoms: jaw locks closed right Prior Treatment: guard rail installer/oral appliance/splint Symptoms status improved Patient presents today [...] initial visit She has seen MD and DDS following [facility] insurance recommendations. BENI PIKE DDS,MS [address] [facility] [address], [place], [address], [facility] 07/23/2023 18:29:25 [...] Symptoms: jaw locks closed right Prior Treatment: guard rail installer/oral appliance/splint Symptoms status improved Patient presents today for follow-up. They report jaw symptoms which are improved since the previous visit. Symptoms and pertinent information along with prior data was reviewed, updated and documented in the patient history of present illness. Patient rates the pain intensity as 2 on a scale of 0 to 10. Patient is engaged in active treatment at this time. Kaim is present for a follow up appointment [...] compresses daily (jaw/neck), KYLE PIKE DDS,MS [address], [place], [address], [facility] 08/25/2023 16:23:34 [...] Symptoms: jaw locks closed right Prior Treatment: guard rail installer/oral appliance/splint Symptoms status improved Patient presents today [...] range of motion BENI PIKE DDS,MS [address], [place], [address], [facility] 10/27/2023 15:03:03 [...] Symptoms: jaw locks closed right Prior Treatment: guard rail installer/oral appliance/splint Symptoms status improved Patient presents today [...] the left side. BENI PIKE DDS,MS [address] [facility] [address], [place], [address], [facility] 12/02/2023 16:14:48 [...] Symptoms: jaw locks closed right Prior Treatment: guard rail installer/oral appliance/splint Symptoms status improved Patient presents today [...] today. Kami did finish with PT in [place]. She is doing home exercises as needed. She wearing her mandibular splint nightly without issues. Pain is now occurring upon awakening and splint is very helpful. BENI PIKE DDS,MS [address], [place], [address], [facility] 12/28/2023 10:30:51 OBGyn Episode No OBEpisode recorded.
--- NOTE | 2024-02-08 08:00 | CT_ITS ---
Patient: JAYNE HAHN Facility:?[facility] Patient ID:?[id number] Site Patient ID:?[id number]. Site :?1984 Study:?CT-Abdomen/Pelvis W/ 78CC ISOVUE 370 WATER PREP-02/08/2024 8:29:39 AM Ordering Physician:VARUN Final Report: Indication: CT Abdomen/Pelvis W/ 78CC ISOVUE 370 WATER PREP Technique: CT Abdomen/Pelvis W/ 78CC ISOVUE 370 WATER PREP Please note that all CT scans at this facility use dose modulation, iterative reconstruction, and/or weight-based dosing when appropriate to reduce radiation dose to as low as reasonably achievable. Comparison: Pelvic ultrasound 01/14/2024 Findings: Mild dependent scarring/atelectasis noted within both lung bases. No pleural effusion. No suspicious intrahepatic mass. Gallbladder is incompletely distended. No calcified gallstones. No biliary obstruction. The pancreas and spleen are within normal limits. Normal adrenal glands. Normal kidneys. Pancreas within normal limits. No hiatal hernia. The bladder is normal. Normal uterus. No adnexal mass. No free air, free fluid or abscess. No evidence of acute diverticulitis. No inflammatory bowel disease. No bowel wall thickening. Osseous structures are within normal limits. No fracture Impression: No bowel obstruction or inflammatory change. No suspicious findings. Please note that all CT scans at this facility use dose modulation, iterative reconstruction, and/or weight-based dosing when appropriate to reduce radiation dose to as low as reasonably achievable. Dictated by Darrion Chaudhry MD @ 02/08/2024 12:53:57 PM Signed by:?Darrion Chaudhry MD @02/08/2024 12:53:57 PM (Electronic Signature)
== END 2024-02-08 07:52 | disposition home or self-care (01) ==
LOC: CT 07:52
PROVIDERS: PCP Family Medicine; Visit Provider Family Medicine
DX: R10.9 Unspecified abdominal pain (principal); G89.29 Other chronic pain
CPT/HCPCS: 74177; Q9967

== ENCOUNTER 2024-04-21 08:08 | Outpatient (CLI) | payer BC, SELFPAY | END 2024-04-21 08:09 | disposition home or self-care (01) | LOC: NFLDREF 04-22 07:27 | PROVIDERS: PCP Family Medicine; Referring Provider Family Medicine; Visit Provider Emergency Medicine | DX: R10.13 Epigastric pain (principal) | CPT/HCPCS: 87338 ==

== ENCOUNTER 2024-04-22 08:08 | Outpatient (CLI) | payer BC, SELFPAY ==
--- OUTSIDE RECORDS SUMMARY | 2024-04-24 05:07 | XMS_ITS | Data Portability ---
Author Organization [place] [facility] [place] [facility] Address [address] [place] [address] [address] [place] [address] Care Team Providers Care Animal Taxonomist Name Role Phone TANISHA GARCIA Primary Care Provider [phone] [facility] Physical Therapis t [facility] Dentist Assessment Encounter Date Assessment Date Assessment LastModified by Organization Details LastModified Time 07/23/2023 07/23/2023 Today I reviewed the pathophysiology [...] her DDS to start prior authorization with [facility]. Our office has received a letter from [...] stabil izatio n applia nce Not Available [place] [address], [place], [address], 06/19/2023 14:45:00 06/23/20 23 06/24/2023 CT, tempo ral bone, w/o contr ast No observ ation record ed. [place] [address], [place], [address], 06/25/2023 13:06:30 07/20/20 23 07/20/2023 CT, tempo ral bone, w/o contr ast No observ ation record ed. [place] [address], [place], [address], 07/23/2023 18:05:30 Result Notes None recorded. 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 BENI Oconnell, DDS,MS [address], [place], [address], [place] [facility] 4 14:57:52 Myofascial pain Active 2022 masticatory BENI NASCIMENT Kourtney DDS,MS [address], [place], [address], [facility] 3 20:42:21 Sleep related bruxism Active 2022 BENI NASCIMENT O DDS,MS [address], [place], [address], [facility] 3 20:44:30 Bilateral temporomandibul ar joint pain Active 2022 Bilateral TMJ arthralgia?? 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 BENI NASCIMENT Kourtney DDS,MS [address], [place], [address], [facility] 4 14:57:39 Problem Notes None recorded. Procedures Surgical History Date Name Laterality Status Provider Name and Address Organization Details Recorded Time 4 Oral appliance completed Cynthia dupont [facility] 10/26/2023 10:47:[address] TMJ completed Sherine dupont [facility] 07/02/2023 14:11:04 3 Dilation and Curettage completed Ania dupont [facility] 06/23/2023 14:13:57 Imaging Results Imaging Date Name Status LastModified by Vincenzo anguiano Details LastModified Time 06/24/2023 CT, temporal bone, w/o contrast completed [place] [address], [place], [address], 06/25/2023 13:06:30 07/20/2023 CT, temporal bone, w/o contrast completed [place] [address] [facility] [address], [place], [address], 07/23/2023 18:05:30 Procedure Notes None recorded. Medical [...] /min 115 mm[Hg] 70 mm[Hg] Cynthia Chau [facility] 07/23/2023 14:38:25 Date Recorded Body height Heart rate Systolic blood pressure Diastolic blood pressure Provider Name and Address Organization Details Last Updated DateTime 08/25/2023 162.56 cm 92 /min 116 mm[Hg] 72 mm[Hg] Cynthia Chau [facility] 08/25/2023 14:04:54 Date Recorded Body height Body mass index (BMI) Body weight Heart rate Systolic blood pressure Diastolic blood pressure Provider Name and Address Organization Details Last Updated DateTime 4 162.56 cm 25.7 kg/m2 38712.8 6 g 75 /min 119 mm[Hg] 79 mm[Hg] Cynthiamaximo Ricekelsea [facility] 4 14:00:16 Date Recorded Body height Heart rate Systolic blood pressure Diastolic blood pressure Provider Name and Address Organization Details Last Updated DateTime 12/02/2023 162.56 cm 71 /min 115 mm[Hg] 71 mm[Hg] Cynthia Chau [facility] 12/02/2023 15:34:44 Date Recorded Body height Heart rate Systolic blood pressure Diastolic blood pressure Provider Name and Address Organization Details Last Updated DateTime 12/28/2023 162.56 cm 73 /min 117 mm[Hg] 74 mm[Hg] Austyn Irby [facility] 12/28/2023 10:03:07 Social History Question Answer Notes LastModified by Organizat ion Details LastModified Time Tobacco Smoking Status Never Smoker Ania dupont 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 [id number] Information not available 06/23/2023 Sex: Unknown Functional Status None recorded. Mental Status None [...] Time SARS-COV-2 (COVID-19) vaccine, UNSPECIFIED 06/21/[address] [facility] 06/23/2023 14:11:29 Past Encounters Encounter ID Performer Location Encounter Start Date Encounter Closed Date Diagnosis/Indication Diagnosis SNOMED-CT Code [id number] BENI PIKE DDS,MS [place] [address] [place] [address] 06/23/2023 13:54:01 06/23/2023 15:17:47 Myofascial pain 898033464 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 3692308399716 9105 Sleep related bruxism 27 8013350 Bilateral temporomandibular joint pain 4457289249763 9105 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 1735392753785 9104 [id number] BENI PIKE DDS, [place] [address] [address] 07/02/2023 14:27:20 07/02/2023 14:37:19 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 2601013418715 9104 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 1205262597201 9105 Bilateral temporomandibular joint pain 5606972238550 9105 Myofascial pain 62971616 9 Sleep related bruxism 27 8943502 [id number] BENI PIKE DDS,MS [place] [address] [facility],[address] [place] [address] 07/23/2023 14:34:02 07/23/2023 15:18:46 Bilateral temporomandibular joint pain 8258469550770 9105 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 1408712305842 9104 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 4469945243407 9105 Sleep related bruxism 27 1044858 Myofascial pain 15665827 9 [id number] BENI PIKE DDS,MS [place] [address] [place] [address] 08/25/2023 14:02:17 08/25/2023 14:43:06 Bilateral temporomandibular joint pain 9513445811680 9105 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 6497402872889 9104 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 3908938394327 9105 Myofascial pain 28866855 9 Sleep related bruxism 27 6228127 [id number] BENI PIKE DDS,MS [place] [address] [place] [address] 10/27/2023 13:56:30 10/27/2023 14:31:47 Bilateral temporomandibular joint pain 0232005082925 9105 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 1974545870762 9104 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 7662351996738 9105 Sleep related bruxism 27 1794005 Myofascial pain 33580544 9 [id number] BENI PIKE DDS,[place] [address] [place] [address] 12/02/2023 15:31:56 12/02/2023 15:58:01 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 0818951625968 9104 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 0138537117488 9105 Bilateral temporomandibular joint pain 0321717560546 9105 Sleep related bruxism 27 8037352 Myofascial pain 33419334 9 [id number] BENI PIKE DDS,[place] [address] [place] [address] 12/28/2023 09:59:47 12/28/2023 10:28:13 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 7981498225472 9104 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 7083661941375 9105 Bilateral temporomandibular joint pain 6858553665237 9105 Sleep related bruxism 27 0104424 Myofascial pain 34409381 9 Health Concerns Section Related Observation LastModified by Organization Detai ls LastModified Time None Recorded Concern Status LastModified by Organization Details LastModified Time None Recorded Advance Directives Directive None Recorded Payers Encounter Date Sequence Insurance Name Policy Number Policy Handy Covered Member ID Handy Member ID Guarantor Name 07/23/2023 1 SHERRIEMEAGAN [id number] Kami Sierra [id number] Kami Sierra 08/25/2023 1 OMAYRA [id number] Kami Sierra [id number] Kami Sierra 10/27/2023 1 [facility] [id number] Kami Todd Mariela [id number] Kami Todd Mariela 12/02/2023 1 [facility] [id number] Kami Todd Mariela [id number] 59 Kami Todd Mariela 12/28/2023 1 [facility] [id number] Kami Todd Mariela [id number] Kami Todd Mariela Notes Date Note Type Note Provider Name and Address Organization Details Recorded Time 07/23/2023 text/html HPI Notes: gener al HPI [...] Symptoms: jaw locks closed right Prior Treatment: watch guard gate/oral appliance/splint Symptoms status improved Patient presents today [...] initial visit She has seen MD and CHRISSY following [facility] insurance recommendations. BENI PIKE DDS,MS [address] [facility] [address], [place], [address], [facility] 07/23/2023 [...] Symptoms: jaw locks closed right Prior Treatment: watch guard gate/oral appliance/splint Symptoms status improved Patient presents today [...] compresses daily (jaw/neck), KYLE PIKE DDS,MS [address] [facility] [address], [place], [address], [facility] 08/25/2023 [...] Symptoms: jaw locks closed right Prior Treatment: watch guard gate/oral appliance/splint Symptoms status improved Patient presents today [...] range of motion BENI PIKE DDS,MS [address] [facility] [address], [place], [address], [facility] 10/27/2023 [...] Symptoms: jaw locks closed right Prior Treatment: watch guard gate/oral appliance/splint Symptoms status improved Patient presents today [...] the left side. BENI PIKE DDS,MS [address] [facility] [address], [place], [address], [facility] 12/02/2023 [...] Symptoms: jaw locks closed right Prior Treatment: watch guard gate/oral appliance/splint Symptoms status improved Patient presents today [...] today. Kami did finish with PT in [place]. She is doing home exercises as needed. She wearing her mandibular splint nightly without issues. Pain is now occurring upon awakening and splint is very helpful. BENI PIKE DDS,MS [address] [place], [place], [address], [facility] 12/28/2023 10:30:51 OBGyn Episode No OBEpisode recorded.
== END 2024-04-22 08:09 | disposition home or self-care (01) ==
PROVIDERS: PCP Family Medicine; Referring Provider Family Medicine; Visit Provider Emergency Medicine
DX: Z13.1 Encounter for screening for diabetes mellitus (principal); Z13.6 Encounter for screening for cardiovascular disorders
CPT/HCPCS: 80061; 82947

== ENCOUNTER 2024-05-13 08:35 | Outpatient (CLI) | payer BC, SELFPAY ==
--- OUTSIDE RECORDS SUMMARY | 2024-05-13 08:38 | XMS_ITS | Data Portability ---
Author Organization [place] [facility] [place] [facility] Address [address] [place] [address] [address] [place] [address] Care Team Providers Care Steward Dishwasher Name Role Phone TANISHA GARCIA Primary Care Provider [facility] Physical Therapis t [facility] Dentist [phone] Assessment Encounter Date Assessment Date Assessment LastModified [...] documentation necessary to start prior authorization with [facility]. I suggested that (s)he return for follow-up [...] stabil izatio n applia nce Not Available [place] [address], [place], [address], 06/19/2023 14:45:00 06/23/20 23 06/24/2023 CT, tempo ral bone, w/o contr ast No observ ation record ed. [place] [address], [place], [address], 06/25/2023 13:06:30 07/20/20 23 07/20/2023 CT, tempo ral bone, w/o contr ast No observ ation record ed. [place] [address], [place], [address], 07/23/2023 18:05:30 Result Notes None recorded. 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 BENI Oconnell, DDS,MS [address], [place], [address], [place] [facility] 4 14:57:52 Myofascial pain Active 2022 masticatory BENI NASCIMENT Kourtney DDS,MS [address], [place], [address], [facility] 3 20:42:21 Sleep related bruxism Active 2022 BENI NASCIMENT O DDS,MS [address], [place], [address], [facility] 3 20:44:30 Bilateral temporomandibul ar joint pain Active 2022 Bilateral TMJ arthralgia?? 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 BENI NASCIMENT Kourtney DDS,MS [address], [place], [address], [facility] 4 14:57:39 Problem Notes None recorded. Procedures Surgical History Date Name Laterality Status Provider Name and Address Organization Details Recorded Time 4 Oral appliance completed Cynthia dupont [facility] 10/26/2023 10:47:[address] TMJ completed Sherine dupont [facility] 07/02/2023 14:11:04 3 Dilation and Curettage completed Ania dupont [facility] 06/23/2023 14:13:57 Imaging Results Imaging Date Name Status LastModified by Vincenzo anguiano Details LastModified Time 06/24/2023 CT, temporal bone, w/o contrast completed [place] [address], [place], [address], 06/25/2023 13:06:30 07/20/2023 CT, temporal bone, w/o contrast completed [place] [address] [facility] [address], [place], [address], 07/23/2023 18:05:30 Procedure Notes None recorded. Medical [...] /min 115 mm[Hg] 70 mm[Hg] Cynthia Chau [facility] 07/23/2023 14:38:25 Date Recorded Body height Heart rate Systolic blood pressure Diastolic blood pressure Provider Name and Address Organization Details Last Updated DateTime 08/25/2023 162.56 cm 92 /min 116 mm[Hg] 72 mm[Hg] Cynthia Chau [facility] 08/25/2023 14:04:54 Date Recorded Body height Body mass index (BMI) Body weight Heart rate Systolic blood pressure Diastolic blood pressure Provider Name and Address Organization Details Last Updated DateTime 4 162.56 cm 25.7 kg/m2 94472.8 6 g 75 /min 119 mm[Hg] 79 mm[Hg] Cynthiamaximo Ricekelsea [facility] 4 14:00:16 Date Recorded Body height Heart rate Systolic blood pressure Diastolic blood pressure Provider Name and Address Organization Details Last Updated DateTime 12/02/2023 162.56 cm 71 /min 115 mm[Hg] 71 mm[Hg] Cynthia Chau [facility] 12/02/2023 15:34:44 Date Recorded Body height Heart rate Systolic blood pressure Diastolic blood pressure Provider Name and Address Organization Details Last Updated DateTime 12/28/2023 162.56 cm 73 /min 117 mm[Hg] 74 mm[Hg] Austyn Irby [facility] 12/28/2023 10:03:07 Social History Question Answer Notes LastModified by Organizat ion Details LastModified Time Tobacco Smoking Status Never Smoker Ania dupont [facility] 06/23/2023 13:59:20 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 [id number] Information not available 06/23/2023 Sex: Unknown Functional [...] (COVID-19) vaccine, UNSPECIFIED 06/21/2022 completed Ania dupont [facility] 06/23/2023 14:11:29 Past Encounters Encounter ID Performer Location Encounter Start Date Encounter Closed Date Diagnosis/Indication Diagnosis SNOMED-CT Code [id number] BENI PIKE DDS,MS [place] [address] [place] [address] 06/23/2023 13:54:01 06/23/2023 15:17:47 Myofascial pain 791727149 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 8232610410225 9105 Sleep related bruxism 27 6951709 Bilateral temporomandibular joint pain 2266397229624 9105 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 9407014179158 9104 [id number] BENI PIKE DDS, [place] [address] [address] 07/02/2023 14:27:20 07/02/2023 14:37:19 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 1062259288174 9104 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 5386972889110 9105 Bilateral temporomandibular joint pain 8320705666919 9105 Myofascial pain 94771635 9 Sleep related bruxism 27 8097566 [id number] BENI PIKE DDS,MS [place] [address] [facility],[address] [place] [address] 07/23/2023 14:34:02 07/23/2023 15:18:46 Bilateral temporomandibular joint pain 8313840943849 9105 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 8788808646635 9104 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 8571558346205 9105 Sleep related bruxism 27 8113519 Myofascial pain 40696999 9 [id number] BENI PIKE DDS,MS [place] [address] [place] [address] 08/25/2023 14:02:17 08/25/2023 14:43:06 Bilateral temporomandibular joint pain 0256937949258 9105 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 3567271216974 9104 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 7689757353551 9105 Myofascial pain 19934694 9 Sleep related bruxism 27 8075771 [id number] BENI PIKE DDS,MS [place] [address] [place] [address] 10/27/2023 13:56:30 10/27/2023 14:31:47 Bilateral temporomandibular joint pain 5007424375775 9105 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 0688753772613 9104 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 4129229794515 9105 Sleep related bruxism 27 2161684 Myofascial pain 45246495 9 [id number] BENI PIKE DDS,[place] [address] [place] [address] 12/02/2023 15:31:56 12/02/2023 15:58:01 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 8485569034933 9104 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 0889900340863 9105 Bilateral temporomandibular joint pain 7845790398353 9105 Sleep related bruxism 27 5536049 Myofascial pain 89274595 9 [id number] BENI PIKE DDS,[place] [address] [place] [address] 12/28/2023 09:59:47 12/28/2023 10:28:13 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 4374518733710 9104 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 7958430365692 9105 Bilateral temporomandibular joint pain 0019012385021 9105 Sleep related bruxism 27 4742737 Myofascial pain 30992884 9 Health Concerns Section Related Observation LastModified by Organization Detai ls LastModified Time None Recorded Concern Status LastModified by Organization Details LastModified Time None Recorded Advance Directives Directive None Recorded Payers Encounter Date Sequence Insurance Name Policy Number Policy Handy Covered Member ID Handy Member ID Guarantor Name 07/23/2023 1 SHERRIEMEAGAN [id number] Kami Sierra [id number] Kami Sierra 08/25/2023 1 OMAYRA [id number] Kami Sierra [id number] Kami Sierra 10/27/2023 1 [facility] [id number] Kami Todd Mariela [id number] Kami Todd Mariela 12/02/2023 1 [facility] [id number] Kami Todd Mariela [id number] 59 Kami Todd Mariela 12/28/2023 1 [facility] [id number] Kami Todd Mariela [id number] Kami Todd Mariela Notes Date Note [...] jaw locks closed right Prior Treatment: guard manager/oral appliance/splint Symptoms status improved Patient presents today [...] She has seen MD and CHRISSY following [facility] insurance recommendations. BENI PIKE DDS,MS [address] [facility] [address], [place], [address], [facility] 07/23/2023 [...] jaw locks closed right Prior Treatment: guard manager/oral appliance/splint Symptoms status improved Patient presents today [...] compresses daily (jaw/neck), KYLE PIKE DDS,MS [address] [facility] [address], [place], [address], [facility] 08/25/2023 [...] jaw locks closed right Prior Treatment: guard manager/oral appliance/splint Symptoms status improved Patient presents today [...] range of motion BENI PIKE DDS,MS [address] [facility] [address], [place], [address], [facility] 10/27/2023 [...] jaw locks closed right Prior Treatment: guard manager/oral appliance/splint Symptoms status improved Patient presents today [...] the left side. BENI PIKE DDS,MS [address] [facility] [address], [place], [address], [facility] 12/02/2023 [...] jaw locks closed right Prior Treatment: guard manager/oral appliance/splint Symptoms status improved Patient presents today [...] today. Kami did finish with PT in [place]. She is doing home exercises as needed. She wearing her mandibular splint nightly without issues. Pain is now occurring upon awakening and splint is very helpful. BENI PIKE DDS,MS [address] [place] [address] [address], [place], [address], [facility] 12/28/2023 10:30:51 OBGyn Episode No OBEpisode recorded.
--- NOTE | 2024-05-13 08:45 | CRLHL7_ITS ---
For Patients: As a result of the Century Cures Act, medical imaging exams and procedure reports are released immediately into your electronic medical record. You may view this report before your referring provider. If you have questions, please contact your health care provider. BILATERAL SCREENING MAMMOGRAM WITH COMPUTER-AIDED DETECTION AND TOMOSYNTHESIS TECHNIQUE: CC and MLO views were obtained. These mammographic images have been obtained using full-field digital technique. These mammographic images were interpreted with the benefit of computer-aided detection. Breast Tomosynthesis was used in this interpretation. COMPARISON FILM: 05/08/21. FINDINGS: There are scattered areas of fibroglandular density IMPRESSION: There is no radiographic evidence for malignancy. ASSESSMENT: BI-RADS Category 1: Negative RECOMMENDATION: Routine screening mammogram in 1 year. A lay language report of this examination will be provided to the patient. Darrion Chaudhry M.D. Diagnostic Radiologist [email or web address] MANISH/Dictated by: Darrion Chaudhry MD @ 05/13/2024 11:33:00 AM (Electronically Signed)
== END 2024-05-13 08:36 | disposition home or self-care (01) ==
PROVIDERS: PCP Family Medicine; Visit Provider Emergency Medicine
DX: Z12.31 Encounter for screening mammogram for malignant neoplasm of breast (principal)
CPT/HCPCS: 77063; 77067

== ENCOUNTER 2024-10-05 10:46 | Outpatient (CLI) | payer BC, SELFPAY | END 2024-10-05 10:47 | disposition home or self-care (01) | LOC: NFLDREF 10:47 | PROVIDERS: PCP Family Medicine; Visit Provider Registered Nurse | DX: R00.0 Tachycardia, unspecified (principal) | CPT/HCPCS: 84443 ==